=== PATIENT | female | born 1960 | race Caucasian/White ===

== ENCOUNTER 2016-05-17 11:42 | Outpatient (CLI) ==
[2014-07-24 13:00] VITALS: BMI 23.8
[2016-05-17 12:57] LABS: BILIRUBIN,URINE Negative (NEGATIVE); KETONES,URINE Negative (NEGATIVE); LEUKOCYTE ESTERASE ,URINE 1+ (NEGATIVE); NITRITE,URINE Negative (NEGATIVE); PROTEIN,URINE Negative (NEGATIVE); URINE, BLOOD Negative (NEGATIVE)
[2016-05-17 13:14] LABS: ADD URINE MICROSCOPIC YES
[2016-05-17 13:16] LABS: BACTERIA,URINE 1+ (NOT PRESENT)
[2016-05-17 13:23] LABS: ALBUMIN 3.8 g/dL (3.4-5.0); ALBUMIN/GLOBULIN RATIO 1.06; ANION GAP 15.1; BILIRUBIN,TOTAL 0.36 mg/dL (0.00-1.20); CALCIUM 9.7 mg/dL (8.2-10.2); CREATININE 0.99 mg/dL (0.60-1.30); POTASSIUM 5.1 mmol/L (3.5-5.10); TOTAL PROTEIN 7.4 g/dL (6.4-8.2)
[2016-05-17 13:24] LABS: BUN/CREATININE RATIO 27.27
== END 2016-05-17 11:43 | disposition home or self-care (01) ==
LOC: LAB 11:42
PROVIDERS: ATTEND Nurse Practitioner Family
DX: I10 Essential (primary) hypertension (principal); E11.9 Type 2 diabetes mellitus without complications; R30.9 Painful micturition, unspecified
CPT/HCPCS: 36415; 80053; 80061; 81001; 83036; 84443; 87086; 87186

== ENCOUNTER 2016-08-12 10:27 | Outpatient (CLI) ==
[2014-07-24 13:00] VITALS: BMI 23.8
[2016-08-12 13:57] LABS: BASOPHILS % (AUTO) 0.5 % (0.0-3.0); EOSINOPHILS # (AUTO) 0.1 K/ul (0.0-0.7); HEMATOCRIT 38.6 % (37.0-47.0); HEMOGLOBIN 12.7 g/dl (12.0-16.0); IMMATURE GRANULOCYTE % (AUTO) 0.4 % (0.0-5.0); LYMPHOCYTES # (AUTO) 1.9 K/uL (0.60-3.4); LYMPHOCYTES % (AUTO) 24.6 (10.0-50.0); MEAN CORPUSCULAR HEMOGLOBIN 31.2 pg (27.0-31.0); MEAN CORPUSCULAR HGB CONC 32.9 (31.8-35.4); MEAN CORPUSCULAR VOLUME 94.8 fl (81.0-99.0); MONOCYTES # (AUTO) 0.4 K/uL (0.4-2.0); MONOCYTES % (AUTO) 5.5 (0-10); NEUTROPHILS # (AUTO) 5.2 K/ul (2.0-6.9); PLATELET COUNT 218 10^3/uL (140-440); RED BLOOD COUNT 4.07 10^6/ul (4.20-5.40); WHITE BLOOD COUNT 7.68 K/ul (4.6-10.2)
[2016-08-12 15:14] LABS: CHOL/HDL RATIO 4.4 (4.5-5.5)
== END 2016-08-12 10:28 | disposition home or self-care (01) ==
LOC: LAB 10:27
PROVIDERS: ATTEND Nurse Practitioner Family
DX: E11.9 Type 2 diabetes mellitus without complications (principal); I10 Essential (primary) hypertension; E78.5 Hyperlipidemia, unspecified
CPT/HCPCS: 36415; 80061; 83036; 85025

== ENCOUNTER 2016-08-17 17:19 | Outpatient (CLI) ==
[2014-07-24 13:00] VITALS: BMI 23.8
[2016-08-17 18:44] LABS: BILIRUBIN,URINE Negative (NEGATIVE); KETONES,URINE Negative (NEGATIVE); LEUKOCYTE ESTERASE ,URINE 1+ (NEGATIVE); NITRITE,URINE Positive (NEGATIVE); PH,URINE 5.5 (5-9); PROTEIN,URINE Negative (NEGATIVE); URINE, BLOOD Negative (NEGATIVE)
[2016-08-17 18:51] LABS: ADD URINE MICROSCOPIC YES
[2016-08-17 18:52] LABS: BACTERIA,URINE 4+ (NOT PRESENT)
== END 2016-08-17 17:20 | disposition home or self-care (01) ==
LOC: LAB 17:19
PROVIDERS: ATTEND Nurse Practitioner Family
DX: E78.5 Hyperlipidemia, unspecified (principal); E11.9 Type 2 diabetes mellitus without complications; I10 Essential (primary) hypertension; N39.0 Urinary tract infection, site not specified
CPT/HCPCS: 81001; 87086; 87186

== ENCOUNTER 2016-11-18 11:39 | Outpatient (CLI) ==
[2014-07-24 13:00] VITALS: BMI 23.8
[2016-11-18 12:48] LABS: BILIRUBIN,URINE Negative (NEGATIVE); KETONES,URINE Negative (NEGATIVE); LEUKOCYTE ESTERASE ,URINE 2+ (NEGATIVE); NITRITE,URINE Negative (NEGATIVE); PH,URINE 5.5 (5-9); PROTEIN,URINE Negative (NEGATIVE); URINE, BLOOD 2+ (NEGATIVE)
[2016-11-18 12:57] LABS: ADD URINE MICROSCOPIC YES
[2016-11-18 12:58] LABS: BACTERIA,URINE 3+ (NOT PRESENT)
== END 2016-11-18 11:40 | disposition home or self-care (01) ==
LOC: LAB 11:39
PROVIDERS: ATTEND Nurse Practitioner Family
DX: R30.9 Painful micturition, unspecified (principal)
CPT/HCPCS: 81001; 87086

== ENCOUNTER 2016-11-22 13:05 | Outpatient (CLI) ==
[2014-07-24 13:00] VITALS: BMI 23.8
[2016-11-22 13:49] LABS: HEMOGLOBIN 13.2 g/dl (12.0-16.0); MEAN CORPUSCULAR HEMOGLOBIN 30.5 pg (27.0-31.0); MEAN CORPUSCULAR HGB CONC 33.8 (31.8-35.4); MEAN CORPUSCULAR VOLUME 90.1 fl (81.0-99.0); PLATELET COUNT 221 10^3/uL (140-440); RED BLOOD COUNT 4.33 10^6/ul (4.20-5.40); WHITE BLOOD COUNT 7.41 K/ul (4.6-10.2)
[2016-11-22 14:59] LABS: ALBUMIN 3.8 g/dL (3.4-5.0); ALBUMIN/GLOBULIN RATIO 1.12; ANION GAP 16.1; BILIRUBIN,TOTAL 0.45 mg/dL (0.00-1.20); BUN/CREATININE RATIO 24.07; CHOL/HDL RATIO 4.3 (4.5-5.5); CREATININE 1.08 mg/dL (0.60-1.30); POTASSIUM 4.1 mmol/L (3.5-5.10); TOTAL PROTEIN 7.2 g/dL (6.4-8.2)
== END 2016-11-22 13:06 | disposition home or self-care (01) ==
LOC: LAB 13:05
PROVIDERS: ATTEND Nurse Practitioner Family
DX: E11.9 Type 2 diabetes mellitus without complications (principal); I10 Essential (primary) hypertension
CPT/HCPCS: 36415; 80053; 80061; 83036; 85025

== ENCOUNTER 2017-02-01 16:34 | Outpatient (CLI) ==
[2014-07-24 13:00] VITALS: BMI 23.8
[2017-02-01 16:42] LABS: BILIRUBIN,URINE Negative (NEGATIVE); KETONES,URINE Negative (NEGATIVE); LEUKOCYTE ESTERASE ,URINE Trace (NEGATIVE); NITRITE,URINE Positive (NEGATIVE); PH,URINE 5.5 (5-9); PROTEIN,URINE Negative (NEGATIVE); URINE, BLOOD Trace-intact (NEGATIVE)
[2017-02-01 16:53] LABS: ADD URINE MICROSCOPIC YES
[2017-02-01 16:55] LABS: BACTERIA,URINE 4+ (NOT PRESENT)
== END 2017-02-01 16:35 | disposition home or self-care (01) ==
LOC: LAB 16:34
PROVIDERS: ATTEND Nurse Practitioner Family
DX: R81 Glycosuria (principal); R35.0 Frequency of micturition
CPT/HCPCS: 81001

== ENCOUNTER 2017-05-25 15:27 | Outpatient (CLI) ==
[2014-07-24 13:00] VITALS: BMI 23.8
== END 2017-05-25 15:28 | disposition home or self-care (01) ==
LOC: LAB 15:27
PROVIDERS: ATTEND Nurse Practitioner Family
DX: N39.0 Urinary tract infection, site not specified (principal); R31.9 Hematuria, unspecified
CPT/HCPCS: 81001; 87086

== ENCOUNTER 2017-05-26 14:53 | Outpatient (CLI) ==
[2014-07-24 13:00] VITALS: BMI 23.8
== END 2017-05-26 14:54 ==
LOC: LAB 14:53
PROVIDERS: ATTEND Nurse Practitioner Family
DX: E11.9 Type 2 diabetes mellitus without complications (principal); I10 Essential (primary) hypertension; E78.5 Hyperlipidemia, unspecified
CPT/HCPCS: 36415; 80053; 80061; 83036; 84443; 85025

== ENCOUNTER 2017-06-09 15:41 | Outpatient (CLI) ==
[2014-07-24 13:00] VITALS: BMI 23.8
--- NOTE | 2017-06-09 16:39 | DI ---
EXAM: KUB. History: Abdominal pain. Comparison: CT abdomen pelvis 07/24/2014 Findings: Postsurgical changes of the lumbosacral spine. Cholecystectomy clips. Nonspecific but no nobstructive bowel gas pattern. Moderate to large amount colonic stool. No free intraperitoneal air . No calcifications are seen projecting over the renal shadows. Multiple small pelvic calcification s are nonspecific but most likely represent phleboliths. Impression: 1. Nonspecific but nonobstructive bowel gas pattern. 2. Kvawqvji-hl-obvbb amount colonic stool.
== END 2017-06-09 15:42 | disposition home or self-care (01) ==
LOC: RAD 15:41
PROVIDERS: ATTEND Nurse Practitioner Family
DX: R10.9 Unspecified abdominal pain (principal)

== ENCOUNTER 2017-08-30 15:41 | Outpatient (CLI) | payer OTHER, BC ==
[2014-07-24 13:00] VITALS: BMI 23.8
== END 2017-08-30 15:42 | disposition home or self-care (01) ==
LOC: RHC-LAB 15:41
PROVIDERS: ATTEND Nurse Practitioner Family
DX: R30.9 Painful micturition, unspecified (principal)
CPT/HCPCS: 36415; 80053; 80061; 81001; 82306; 82607; 83036; 85025; 87086

== ENCOUNTER 2017-09-01 14:17 | Outpatient (CLI) ==
[2014-07-24 13:00] VITALS: BMI 23.8
== END 2017-09-01 14:18 | disposition home or self-care (01) ==
LOC: LAB 14:17
PROVIDERS: ATTEND Nurse Practitioner Family
DX: I10 Essential (primary) hypertension (principal); R53.83 Other fatigue; E11.9 Type 2 diabetes mellitus without complications; E78.5 Hyperlipidemia, unspecified
CPT/HCPCS: 36415; 80053; 83036

== ENCOUNTER 2017-11-09 16:00 | Outpatient (CLI) ==
[2014-07-24 13:00] VITALS: BMI 23.8
== END 2017-11-09 16:01 | disposition home or self-care (01) ==
LOC: RHC-LAB 16:00
PROVIDERS: ATTEND Nurse Practitioner Family
DX: R30.0 Dysuria (principal)
CPT/HCPCS: 81001; 87086

== ENCOUNTER 2017-12-19 10:14 | Outpatient (CLI) ==
[2014-07-24 13:00] VITALS: BMI 23.8
== END 2017-12-19 10:15 | disposition home or self-care (01) ==
LOC: LAB 10:14
PROVIDERS: ATTEND Nurse Practitioner Family
DX: E11.9 Type 2 diabetes mellitus without complications (principal)
CPT/HCPCS: 36415; 80053; 83036

== ENCOUNTER 2017-12-19 13:46 | Observation (INO) ==
[2017-12-19] MEDS ORDERED: NORCO 5-325 PO PRN (13:51)
[2017-12-19] MEDS ORDERED: NON-FORMULARY MEDICATION (Glipizide [Glipizide] 10 MG) PO SCH (14:00)
[2017-12-19] MEDS ORDERED: AUGMENTIN 875-125 MG TAB PO SCH (14:00)
[2017-12-19] MEDS ORDERED: PHENAZOPYRIDINE HCL 200 MG PO SCH (14:00)
[2017-12-19] MEDS ORDERED: NITROFURANTOIN MACROCRYSTAL 100 MG PO SCH (14:00)
[2017-12-19 14:19] VITALS: BMI 31.8
[2017-12-19] MEDS: ALBUTEROL 0.083% NEB NEB SCH ×2 (14:32→21:20)
[2017-12-19] MEDS: SODIUM CHLORIDE 1,000 ML IV SCH (14:39)
[2017-12-19] MEDS: NEURONTIN PO SCH ×2 (14:39→21:10)
[2017-12-19] MEDS: ANTIVERT PO SCH (14:40)
[2017-12-19] MEDS ORDERED: KAYEXALATE SUSP PO STA (14:42)
--- NOTE | 2017-12-19 16:01 | DI ---
Exam: Two-view chest x-ray. Date: 12/19/2017. Comparison: 07/25/2014. HISTORY: Cough. FINDINGS: Degenerative changes are seen in the thoracic spine. The lungs are hyperinflated. There is no focal consolidation in granulomatous calcifications present. Cardiac silhouette and pulmonary vasculature are normal. Impression: No acute intrathoracic findings. Emphysematous changes with old granulomatous disease.
[2017-12-19] MEDS ORDERED: NON-FORMULARY MEDICATION (Lisinopril [Lisinopril] 20 MG) PO SCH (21:00)
[2017-12-19] MEDS ORDERED: NON-FORMULARY MEDICATION (Metformin Hcl [Metformin Hcl] 1,000 MG) PO SCH (21:00)
[2017-12-19] MEDS ORDERED: ZESTRIL ONE (21:00)
[2017-12-19] MEDS ORDERED: GLUCOPHAGE ONE (21:01)
[2017-12-19] MEDS: LOPRESSOR PO SCH (21:10)
[2017-12-19] MEDS: CATAPRES PO SCH (21:10)
[2017-12-19] MEDS ORDERED: TYLENOL PO STA (22:07)
[2017-12-20] MEDS: SODIUM CHLORIDE 1,000 ML IV SCH ×2 (02:25→16:33)
[2017-12-20] MEDS: ALBUTEROL 0.083% NEB NEB SCH ×3 (05:05→22:58)
[2017-12-20] MEDS: DUONEB NEB ONE ×2 (05:16→05:18)
[2017-12-20] MEDS: NEURONTIN PO SCH ×3 (08:28→21:04)
[2017-12-20] MEDS: MACROBID PO SCH ×2 (08:29→21:04)
[2017-12-20] MEDS: ZESTRIL PO SCH ×2 (08:29→21:03)
[2017-12-20] MEDS: EFFEXOR XR PO SCH (08:29)
[2017-12-20] MEDS: GLUCOPHAGE PO SCH ×2 (08:29→16:34)
[2017-12-20] MEDS: CATAPRES PO SCH ×2 (08:30→21:03)
[2017-12-20] MEDS: FLONASE NAS SCH (08:30)
[2017-12-20] MEDS: LIPITOR PO SCH (08:30)
[2017-12-20] MEDS: LOPRESSOR PO SCH ×2 (08:30→21:03)
[2017-12-20] MEDS: PYRIDIUM PO SCH ×3 (08:31→18:32)
[2017-12-20] MEDS: LOVENOX SUBCUT SCH (08:31)
[2017-12-20] MEDS ORDERED: NON-FORMULARY MEDICATION (Fluticasone Propionate [Flonase Allergy Relief] 2 SPRAY) NS SCH (09:00)
[2017-12-20] MEDS ORDERED: NON-FORMULARY MEDICATION (Glipizide [Glipizide] 10 MG) PO SCH (09:00)
[2017-12-20] MEDS: GLUCOTROL PO SCH (09:10)
[2017-12-20] MEDS: ANTIVERT PO SCH (13:15)
--- NOTE | 2017-12-20 14:29 | HP ---
DATE OF SERVICE: 12/19/17 CHIEF COMPLAINT: Elevated Potassium 6.6 HISTORY OF PRESENT ILLNESS: This is a 57 year old female with a history of diabetes and hypertension. She came to get the outpatient blood work, potassium was 6.6 so the patient in review of potassium being 6.6 being lethal the patient was admitted to the hospital for treatment for the acute hyperkalemia. The patient being having urinary tract infections on and off for which the patient was started on the Macrodantin by the Judi Sprague. The patient did say that she was not able to take the medication and says that she still has some burning and frequency of urination and some back pain. No fever or chills. REVIEW OF SYSTEMS: CONSTITUTIONAL: No fever, no chills. HEENT: Normal. ENDOCRINE: No weight gain; no weight loss. CVS: No chest pain. No PND, no orthopnea. No shortness of breath. No PND, no orthopnea. RESPIRATORY: Cough, Congestion. No hemoptysis. GI: No nausea, no vomiting. No abdominal pain. No melena. : No hematuria. No polyuria. MUSCULOSKELETAL: No joint swelling. PSYCHIATRIC: Not anxious. No depression. No suicidal thoughts. No homicidal thoughts. SKIN: Intact, no open lesions. PAST MEDICAL HISTORY: GERD Hysterectomy Diabetes Anxiety PAST SURGICAL HISTORY: Hysterectomy Right eye removed Rehabilitated right ear drum PERSONAL HISTORY: The patient does not smoke, no alcohol and no drugs. FAMILY HISTORY: Cancer MEDICATIONS: Nitrofurantoin Flonase Glipizide Lisinopril Metformin Pyridium [place] Neurontin Effexor Antivert Lopressor Clonidine Lipitor ALLERGIES: Morphine PHYSICAL EXAMINATION: V/S: Blood pressure 103/70, respiratory rate 16, heart rate 80, temperature 97.9 , saturation is 93 on the room air. HEENT: Atraumatic, normocephalic. No scleral icterus. Pallor positive. Mucosa dry. NECK: Supple. No JVD, no bruit. No lymphadenopathy. No thyromegaly. HEART: S1, S2 normal. No murmur. No cyanosis or clubbing. No ascites. LUNGS: Decreased and clear to auscultation. No rales or rhonchi. ABDOMEN: Soft, nontender. Suprapubic tenderness present. Bowel sounds are active. No CVA tenderness. No rigidity or guarding. EXTREMITIES: No pedal edema. No cyanosis or clubbing MUSCULOSKELETAL: Normal joints, no swelling. NEUROLOGIC: The patient is awake and alert. SKIN: Intact; no open lesions. LYMPHATIC: No lymph nodes palpable. LABS: Sodium 137, potassium 6.6, chloride 109, bicarb 24, BUN 30, creatinine 0.93 and glucose 168, A1c 8.2. ASSESSMENT: 1. Acute hyperkalemia 2. Urinary tract infection 3. History of renal failure 4. Diabetes 5. Hypertension 6. Urinary tract infection 7. Diabetes with A1c 8.1 PLAN: 1. Admit patient to the regular floor 2. Kayexalate 3. Albuterol breathing treatment 4. Continue Nitrofurantoin 5. IV fluids 6. Recheck the Potassium by evening 7. Accu-checks with coverage TIME SPENT: MORE THAN 65 minutes MTDD
--- NOTE | 2017-12-20 14:53 | CT ---
EXAM: CT of the chest without contrast History: Hypoxia. Comparison: Chest radiograph 12/19/2017, chest CT 07/25/2014 Technique: Multiplanar CT images through the thorax were obtained without the administration of IV co ntrast Findings: Heart size is within normal limits. No pericardial effusion. No thoracic aortic aneurysm . No pathologically enlarged thoracic lymph nodes. Calcified granulomas again seen within the thora x. Coronary artery calcifications. Emphysema. No focal consolidation. No appreciable pleural flui d and no pneumothorax. No suspicious lung masses or lung nodules. Within the visualized upper abdomen, no acute findings. Stomach is moderately distended with fluid a nd debris. No acute osseous abnormalities. Impression: 1. No acute intrathoracic process. 2. Emphysema. 3. Coronary artery disease.
[2017-12-20] MEDS ORDERED: PROTONIX PO STA (19:50)
[2017-12-21] MEDS: ALBUTEROL 0.083% NEB NEB SCH ×2 (04:43→14:11)
[2017-12-21] MEDS: SODIUM CHLORIDE 1,000 ML IV SCH (05:52)
[2017-12-21] MEDS: PYRIDIUM PO SCH ×3 (08:03→17:29)
[2017-12-21] MEDS: GLUCOPHAGE PO SCH ×2 (08:03→17:29)
[2017-12-21] MEDS: ZESTRIL PO SCH (08:03)
[2017-12-21] MEDS: MACROBID PO SCH (08:04)
[2017-12-21] MEDS: EFFEXOR XR PO SCH (08:04)
[2017-12-21] MEDS: LOPRESSOR PO SCH (08:04)
[2017-12-21] MEDS: NEURONTIN PO SCH ×2 (08:04→15:02)
[2017-12-21] MEDS: CATAPRES PO SCH (08:04)
[2017-12-21] MEDS: LIPITOR PO SCH (08:04)
[2017-12-21] MEDS: GLUCOTROL PO SCH (08:04)
[2017-12-21] MEDS: FLONASE NAS SCH (08:05)
[2017-12-21] MEDS: LOVENOX SUBCUT SCH (08:10)
--- NOTE | 2017-12-21 08:31 | PN ---
DATE OF SERVICE: 12/20/17 SUBJECTIVE: The patient was admitted with the hyperkalemia. The patient is been hypoxic, ABG showed pH 7.317, pCO2 37.9, pO2 62 on room air. Potassium is normal today 4.6. Urine negative. REVIEW OF SYSTEMS: CONSTITUTIONAL: No fever, no chills. HEENT: Normal. ENDOCRINE: No weight gain, no weight loss. CVS: No angina symptoms. No CHF symptoms. No palpitations. No atypical chest pain for CAD. No shortness of breath. No PND, no orthopnea. RESPIRATORY: No cough, no hemoptysis. GI: No nausea, no vomiting. No abdominal pain. : No hematuria. No polyuria. MUSCULOSKELETAL: No joint swelling. PSYCHIATRIC: Not anxious. No depression. No suicidal thoughts. No homicidal thoughts. SKIN: Intact. No rash. PHYSICAL EXAMINATION: V/S: Blood pressure 141/87, respiratory rate 18, heart rate 83, temperature 98.4 with saturation 95 on 2 liters. HEENT: Normocephalic, atraumatic. Mucosa dry. Pallor positive. No icterus. NECK: Supple. No JVD, no carotid bruit. No lymphadenopathy. LUNGS:Decreased and basilar crackles. Clear to auscultation. No rales or rhonchi. HEART: S1, S2 normal. No S3. No murmur, gallop or regurgitation. ABDOMEN: Soft, nontender. Bowel sounds active. No rigidity. No rebound or guarding. No CVA tenderness. EXTREMITIES: No cyanosis, clubbing or pedal edema. MUSCULOSKELETAL: No joint swelling. NEUROLOGIC: Awake, alert. No focal deficit. LYMPHATIC: No lymph nodes palpable. SKIN: Intact. LABS: WBC 7.37, hgb 11.7, hct 35.6, plt count 128, sodium 140, potassium 4.6, chloride 110, bicarb 23, BUN 23, creatinine 0.80 and glucose 133. ASSESSMENT: 1. Status post hyperkalemia 6.6 2. Diabetes 3. Hypoxemia most likely COPD 4. Rule out pneumonia, will get CT chest today 5. Hypertension 6. Dyslipidemia 7. Anemia 8. Urinary tract infection PLAN: 1. Continue two liter nasal cannula. 2. CT of the chest 3. Lovenox for the DVT prophylaxis 4. Continue Nitrofurantoin TIME SPENT: More than 35 minutes MTDD
[2017-12-21] MEDS ORDERED: PROTONIX PO PRN (09:00)
--- NOTE | 2017-12-21 12:19 | US ---
EXAM: Left lower extremity venous doppler. HISTORY: Left leg pain and swelling. COMPARISON: None available. TECHNIQUE: A duplex Doppler study was performed consisting of integrated two dimensional (2D) real-t carrie imaging color flow Doppler and Doppler spectral analysis utilizing linear array probes. FINDINGS: There is normal flow, venous waveforms, compressibility and augmentation of flow within th e left common femoral, greater saphenous, profunda, femoral, popliteal, posterior tibial, anterior ti bial and peroneal veins. IMPRESSION: No evidence for left lower extremity deep vein thrombosis at the levels examined.
--- NOTE | 2017-12-21 13:20 | DI ---
EXAM: Four views of the left knee. History: Left knee pain. Findings: No acute fracture or dislocation. Superior patellar enthesiophyte. Benign anterior soft tissue calcifications. Moderate narrowing of the medial and patellofemoral compartments with osteoph ytes. Mild narrowing of the lateral compartment. Impression: 1. No acute osseous abnormality. 2. Tricompartmental osteoarthritis
[2017-12-21 13:52] VITALS: BP 162/83; TEMP 98.2
[2017-12-21] MEDS: ANTIVERT PO SCH (14:06)
--- NOTE | 2017-12-21 17:35 | PCM.HOSP ---
- Observation Care Discharge [id number] OBS Care Discharge (23806): 12/21 - Initial Observation Care [id number] High Complexity 70 Minutes (79330): 12/19 - Subsequent Observation Care [id number] 35 Minutes per Day (81785): 12/20
--- NOTE | 2017-12-22 09:13 | DS ---
DATE OF SERVICE: 12/21/17 FINAL DIAGNOSIS: 1. Hyperkalemia 2. Hypoxemia 3. Diabetes mellitus 4. Peripheral neuropathy 5. Uncontrolled diabetes 6. GERD 7. Anxiety disorder DISCHARGE INSTRUCTIONS: Discharge the patient home. Followup in the [facility] within 5-7 days. Keep monitoring the blood sugars. MEDICATIONS AT DISCHARGE: Meclizine Lisinopril Metformin Metoprolol Atorvastatin Effexor Clonidine Neurontin Cyclobenzaprine NEW PRESCRIPTIONS: Macrobid 500mg twice a day for 5 more days. Glipizide daily. DIET INSTRUCTIONS: Cardiac and healthy diet ACTIVITY: As much as tolerated DISEASE SPECIFIC EDUCATION: Hyperkalemia Risk of cardiovascular side effects been discussed and verbalized understanding. HOSPITAL COURSE: Citlalli Willis who is a 57 year old female did the blood work as an outpatient which showed elevated Potassium of 6.6. At that time the patient was called for the admission and admitted directly for 6.6 potassium and BUN 30. Given a dose of Kayexalate and Albuterol breathing treatment. Potassium came down to 4.6. Her recent A1c was 8.2. The patient has history of chronic kidney disease, her GFR is 62. The patient was hypoxic and ABG's done, CT chest done and did not show any acute findings. Left knee pain and left leg pain was complained. X-ray showed the moderate arthritis and Venous Doppler showed no clots. Meanwhile the patient is up and about walking and we did evaluate her for the home oxygen but she did not qualify. Up and about and did not have any problems. Saturation 93 on room air. As the patient been doing good and did not have any cough or congestion the patient being discharged home. TIME SPENT: MORE THAN 65 MINUTES [facility]
== END 2017-12-21 18:04 | disposition home or self-care (01) ==
LOC: MEDSURG B 13:46 → INTOOBSV 13:46
PROVIDERS: ADMIT Emergency Medicine; ATTEND Emergency Medicine
DX: E87.5 Hyperkalemia (principal); N39.0 Urinary tract infection, site not specified; E11.9 Type 2 diabetes mellitus without complications; I10 Essential (primary) hypertension; R09.02 Hypoxemia; G62.9 Polyneuropathy, unspecified; K21.9 Gastro-esophageal reflux disease without esophagitis; F41.9 Anxiety disorder, unspecified; E78.5 Hyperlipidemia, unspecified; D64.9 Anemia, unspecified
CPT/HCPCS: 36415; 80053; 81001; 82550; 82803; 82962; 83036; 84484; 85025; 93005; 93010; 94640; 94761

== ENCOUNTER 2018-04-21 14:30 | Outpatient (CLI) | END 2018-04-21 14:31 | disposition home or self-care (01) | LOC: LAB 14:30 → RHC-LAB 14:31 | PROVIDERS: ATTEND Nurse Practitioner Family | DX: N39.0 Urinary tract infection, site not specified (principal) | CPT/HCPCS: 81001; 87086; 87186 ==

== ENCOUNTER 2018-06-27 16:46 | Outpatient (CLI) | END 2018-06-27 16:47 | disposition home or self-care (01) | LOC: FCC-LAB 16:46 | PROVIDERS: ATTEND Nurse Practitioner Family | DX: R30.0 Dysuria (principal); Z86.19 Personal history of other infectious and parasitic diseases | CPT/HCPCS: 87086; 87186 ==

== ENCOUNTER 2018-07-17 16:15 | Outpatient (CLI) | END 2018-07-17 16:16 | disposition home or self-care (01) | LOC: RHC-LAB 16:15 → FCC-LAB 16:16 | PROVIDERS: ATTEND Nurse Practitioner Family | DX: R11.10 Vomiting, unspecified (principal) | CPT/HCPCS: 87502 ==

== ENCOUNTER 2018-07-28 10:39 | Outpatient (CLI) | END 2018-07-28 10:40 | disposition home or self-care (01) | LOC: RHC-LAB 10:39 | PROVIDERS: ATTEND Nurse Practitioner Family | DX: R53.83 Other fatigue (principal); E11.9 Type 2 diabetes mellitus without complications; I10 Essential (primary) hypertension; E78.5 Hyperlipidemia, unspecified; R19.7 Diarrhea, unspecified; N39.0 Urinary tract infection, site not specified | CPT/HCPCS: 36415; 80053; 80061; 82306; 82607; 83036; 84443; 87086 ==

== ENCOUNTER 2018-08-03 15:20 | Outpatient (CLI) | END 2018-08-03 15:21 | disposition home or self-care (01) | LOC: RHC-LAB 15:21 | PROVIDERS: ATTEND Nurse Practitioner Family | DX: E87.5 Hyperkalemia (principal); Z86.19 Personal history of other infectious and parasitic diseases | CPT/HCPCS: 36415; 81001; 84132 ==

== ENCOUNTER 2018-08-28 11:29 | Outpatient (CLI) | payer OTHER | END 2018-08-28 11:30 | disposition home or self-care (01) | LOC: RHC-LAB 11:29 | PROVIDERS: ATTEND Nurse Practitioner Family | DX: M62.441 Contracture of muscle, right hand (principal); R79.89 Other specified abnormal findings of blood chemistry; R81 Glycosuria | CPT/HCPCS: 36415; 80053; 81001; 84443; 87086; 87186 ==

== ENCOUNTER 2022-04-01 15:09 | Observation (INO) ==
[2022-04-01] MEDS ORDERED: TYLENOL PO ONE (15:27)
--- NOTE | 2022-04-01 15:32 | ED.PDOC ---
General ED Provider: Dr. JULISA CHAMPAGNE MD Chief Complaint: Chest Wall Injury/Pain Stated Complaint: mild positional and pleuritic right chest wall pain after trip and fall yesterday w/ syncope, no neck pain, no bleeding, on home oxygen, hs htn, copd, ckd, dm and pneumonia, pt requests a motrin, states she is not allergic to it Time Seen by Provider: 04/01/22 15:14 Mode of Arrival: Wheelchair Information Source: Patient Primary Care Provider: MICHAEL ORTEGA Nursing and Triage Documentation Reviewed and Agree: Yes Does patient meet sepsis criteria?: No System Inflammatory Response Syndrome: Not Applicable Sepsis Protocol: For patient's 13 years and over: Temp is 96.8 and below OR 101 and greater Pulse >90 BPM Resp >20/minute Acutely Altered Mental Status Are patient's symptoms suggestive of a new infection, such as: -Pneumonia -Skin, Soft Tissue -Endocarditis -UTI -Bone, Joint Infection -Implantable Device -Acute Abdominal Infection -Wound Infection -Meningitis -Blood Stream Catheter Infection -Unknown Review of Systems Review Of Systems Constitutional: Denies Fever Eyes: Denies Drainage Ears, Nose, Mouth, Throat: Denies Throat pain Respiratory: Denies Cough, Short of air or Wheezing Cardiac: Reports Chest pain GI: Denies Abdominal pain or Vomiting : Reports Flank pain Musculoskeletal: Denies Back pain Skin: Denies Bruising Neurological: Denies Cognitive dysfunction All Other Systems: Other [facility] Medical History (Updated 04/01/22 @ 18:41 by JULISA CHAMPAGNE MD) Abnormal TSH Abnormal TSH Abnormal TSH Acute sinusitis Bilateral leg cramps Bruise Burning with urination Chronic otitis media Chronic pain of lower extremity, bilateral COPD (chronic obstructive pulmonary disease) Cyst of hand Depression Diabetes Diabetes mellitus Dizziness Falls frequently Ganglion cyst of finger of right hand Glaucoma Hospital discharge follow-up Hyperkalemia Hyperkalemia Hypertension Left hip pain Need for pneumococcal vaccine Neuropathy involving both lower extremities Numbness and tingling of both lower extremities Obesity Osteoarthritis of hips, bilateral PAD (peripheral artery disease) Pain of left knee after injury Sensorineural hearing loss (SNHL) of both ears Tachycardia Tympanic membrane central perforation Upper respiratory infection with cough and congestion Urinary frequency Yeast infection Family History Grandfather/Grandmother Diabetes FATHER Cancer of brain Mother Diabetes Mother Cancer of pancreas PATERNAL GRANDMOTHER Cancer of pancreas SISTER Cancer of pancreas Social History Smoking and tobacco status: Former smoker Tobacco: How many years used: 30 Second hand smoke exposure: Yes Alcohol intake: never Substance use type: does not use Ynes/bahai: pentecbelena Special ynes needs: No Agree to transfusion: Yes Adopted: No Caregiver/support person: No Foster care: No Household members: spouse Housing: house Lives independently: Yes Daycare: no daycare Number of children: 3 Number of grandchildren: 8 Highest education level completed: 10th grade Financial difficulty paying for basics: not applicable service: No half-way: No Current occupational status: employed Current occupation: [employer] Current occupational exposures/hazards: No Pets and animals: Yes Leisure activites: reading and other History of recent travel: No Do you think of yourself as: straight/heterosexual Current gender identity: female Seatbelt use: always Helmet use: No Drives intoxicated or rides with intoxicated stage driver: No Water heater temperature set < 120 degrees: Yes Working smoke detector in home: Yes Fire extinguisher in home: No Carbon monoxide detector in home: No Firearms in home: No Surgical History History of neurologic surgery Status post cholecystectomy Status post hysterectomy Female Reproductive History Menstrual Hx Hysterectomy: Yes Hx Tubal Ligation: No Physical Exam Physical Exam Appearance: Reports Obese Ill-appearing: None Pain Distress: Mild Eyes: Reports Conjunctiva clear (right eye prosthesis) ENT: Reports Oropharynx normal Neck: Supple Respiratory: Reports Airway patent and Breath sounds clear Cardiovascular: Reports RRR and Other (tender right lateral chest wall) GI/: Reports Soft and Nontender Musculoskeletal: Reports ROM intact Skin: Reports Warm and Dry Neurological: Reports Alert and Oriented Psychiatric: Reports Affect appropriate Interpretation Radiology Interpretation Radiology Interpretation By: Radiologist Exam Interpreted: CT Scan Xray Comments: right 9th rib fx, no pneumothorax Radiology Interpretation By: Radiologist Radiology Results: No acute changes Exam Interpreted: CT Scan Xray Comments: no abdominal obstruction EKG Interpretation Time of EKG #1: 18:38 Rate: Normal Rhythm: Sinus Ectopy: PVCs Interpretation: no stemi Critical Care Note Critical Care Note Total Critical Care Time (mins): 0 Course Course Hematology/Chemistry: 04/01/22 15:37 04/01/22 15:37 Orders, Labs, Meds: Lab Review 04/01/22 04/01/22 04/01/22 15:37 15:37 15:37 WBC 8.58 RBC 4.56 Hgb 13.1 Hct 41.1 MCV 90.1 MCH 28.7 MCHC 31.9 RDW Coeff of Pradip 15.6 H Plt Count 247 Immature Gran % (Auto) 0.2 Neut % (Auto) 68.2 Lymph % (Auto) 23.4 [place] % (Auto) 6.8 Eos % (Auto) 0.9 Baso % (Auto) 0.5 Neut # (Auto) 5.9 Lymph # (Auto) 2.0 [place] # (Auto) 0.6 Eos # (Auto) 0.1 Baso # (Auto) 0.0 Immature Gran # (Auto) 0.0 Sodium 141.7 Potassium 3.50 Chloride 107.9 H Carbon Dioxide 28.4 Anion Gap 8.90 BUN 18.3 H Creatinine 0.94 Estimated GFR (MDRD) 60.00 BUN/Creatinine Ratio 19.46 Glucose 120.5 H Lactic Acid 1.80 Calcium 8.89 Total Bilirubin 0.61 AST 23.0 ALT 10.2 Alkaline Phosphatase 100.7 Total Creatine Kinase Troponin I 0.086 Total Protein 7.40 Albumin 3.80 Globulin 3.60 Albumin/Globulin Ratio 1.05 04/01/22 15:37 WBC RBC Hgb Hct MCV MCH MCHC RDW Coeff of Pradip Plt Count Immature Gran % (Auto) Neut % (Auto) Lymph % (Auto) [place] % (Auto) Eos % (Auto) Baso % (Auto) Neut # (Auto) Lymph # (Auto) [place] # (Auto) Eos # (Auto) Baso # (Auto) Immature Gran # (Auto) Sodium Potassium Chloride Carbon Dioxide Anion Gap BUN Creatinine Estimated GFR (MDRD) BUN/Creatinine Ratio Glucose Lactic Acid Calcium Total Bilirubin AST ALT Alkaline Phosphatase Total Creatine Kinase 30.9 Troponin I Total Protein Albumin Globulin Albumin/Globulin Ratio Orders Category Date Time Status EKG-(ED ONLY) Stat CARDIO 04/01/22 15:27 Completed Orthostatic Vital Signs [ED ORTHOSTATIC VITAL SIGNS] . EMERGENCY 04/01/22 16:58 Active ONCE CBC W/ AUTO DIFF Stat LAB 04/01/22 15:37 Completed CMP [COMPREHENSIVE METABOLIC PANEL] Stat LAB 04/01/22 15:37 Completed CPK [CREATINE KINASE] Stat LAB 04/01/22 15:37 Completed LACTIC ACID Stat LAB 04/01/22 15:37 Completed TROPONIN I Stat LAB 04/01/22 15:37 Completed Acetaminophen [Tylenol] MEDS 04/01/22 15:27 Discontinued 650 mg PO ONCE ONE Ibuprofen [Motrin] MEDS 04/01/22 15:38 Discontinued 400 mg PO ONCE ONE Sodium Chloride 0.9% [Sodium Chloride] 1,000 ml MEDS 04/01/22 17:[address] ABDOMEN/PELVIS WO CONTRAST Stat RADS 04/01/22 15:[address] CHEST W/O CONTRAST Stat RADS 04/01/22 15:27 Completed Medications Discontinued Medications Generic Name Dose Route Start Last Admin Trade Name Aubrey PRN Reason Stop Dose Admin Acetaminophen 650 mg 04/01/22 15:27 04/01/22 15:40 Acetaminophen 325 Mg Tablet PO 04/01/22 15:28 Not Given ONCE ONE Sodium Chloride 1,000 mls @ 1,000 mls/hr 04/01/22 17:06 04/01/22 17:13 Sodium Chloride IV 04/01/22 18:05 1,000 mls/hr BOLUS STA Administration Ibuprofen 400 mg 04/01/22 15:38 04/01/22 15:43 Ibuprofen 400 Mg Tablet PO 04/01/22 15:39 400 mg ONCE ONE Administration Vital Signs: Temp Pulse Resp BP Pulse Ox 04/01/22 17:10 94 109/78 04/01/22 17:05 92 102/77 04/01/22 17:00 82 123/79 04/01/22 15:10 97.8 F 88 20 123/85 96 Discharge Plan Discharge Patient Disposition: ADMITTED INPATIENT Discharge Problem: Fractured rib, Syncope, Orthostasis Prescriptions: No Action (DME) lancets [Lancets,Ultra Thin] 26 gauge misc See Rx Instructions .ROUTE .MEDSUPPLY Qty: 50 2RF Rx Instructions: As directed (DME) OneTouch Ultra Blue Test Strip Strip See Rx Instructions .ROUTE .MEDSUPPLY Qty: 50 3RF Rx Instructions: accucheck daily & as needed lovastatin 20 mg tablet See Rx Instructions .ROUTE .COMPLEX Qty: 90 0RF Dose Instruction: TAKE ONE TABLET AT BEDTIME GENERIC FOR MEVACOR Rx Instructions: TAKE ONE TABLET AT BEDTIME GENERIC FOR MEVACOR ferrous sulfate [FeroSul] 325 mg (65 mg iron) tablet See Rx Instructions .ROUTE .COMPLEX Qty: 30 3RF Dose Instruction: TAKE ONE TABLET EVERY OTHER DAY Rx Instructions: TAKE ONE TABLET EVERY OTHER DAY clopidogrel [Plavix] 75 mg tablet 75 mg PO QDAY Qty: 90 3RF metformin 1,000 mg tablet See Rx Instructions .ROUTE .COMPLEX Qty: 180 3RF Dose Instruction: TAKE ONE TABLET TWICE DAILY GENERIC FOR GLUCOPHAGE Rx Instructions: TAKE ONE TABLET TWICE DAILY GENERIC FOR GLUCOPHAGE venlafaxine [Effexor XR] 150 mg capsule,extended release 24hr 150 mg PO QDAY Qty: 30 6RF pantoprazole 40 mg tablet,delayed release (DR/EC) See Rx Instructions .ROUTE .COMPLEX Qty: 90 3RF Dose Instruction: TAKE ONE TABLET DAILY GENERIC FOR PROTONIX Rx Instructions: TAKE ONE TABLET DAILY GENERIC FOR PROTONIX gabapentin 300 mg capsule See Rx Instructions .ROUTE .COMPLEX Qty: 180 2RF Dose Instruction: TAKE 1 CAPSULE EVERY MORNING AND IN THE AFTERNOON AND TAKE FOUR CAPSULES AT BEDTIME Rx Instructions: TAKE 1 CAPSULE EVERY MORNING AND IN THE AFTERNOON AND TAKE FOUR CAPSULES AT BEDTIME cyclobenzaprine 10 mg tablet See Rx Instructions .ROUTE .COMPLEX Qty: 60 2RF Dose Instruction: TAKE ONE TABLET TWICE DAILY NEEDED GENERIC FOR FLEXERIL Rx Instructions: TAKE ONE TABLET TWICE DAILY NEEDED GENERIC FOR FLEXERIL levothyroxine [Synthroid] 75 mcg tablet 75 mcg PO QDAY Qty: 30 2RF ibuprofen 800 mg tablet 800 mg PO Q8H Qty: 20 0RF potassium chloride 10 mEq capsule, extended release 10 meq PO DAILY Qty: 14 0RF ondansetron 4 mg tablet,disintegrating 4 mg PO Q8H PRN (Reason: nausea and vomiting) Qty: 10 0RF albuterol sulfate 90 mcg/actuation HFA aerosol inhaler 2 puff inhalation 6XD PRN (Reason: shortness of breath or wheezing) Qty: 6.7 0RF (DME) compressor, for nebulizer Device See Rx Instructions .ROUTE .MEDSUPPLY Qty: 1 0RF Rx Instructions: As directed atorvastatin 10 mg tablet 10 mg PO QDAY furosemide 20 mg tablet 20 mg PO Q OTHER DAY guaifenesin 600 mg tablet extended release 12hr 600 mg PO Q12H Qty: 30 0RF fluticasone propion-salmeterol [Wixela Inhub] 250-50 mcg/dose blister with device 1 inh inhalation BID 30 Days Qty: 60 0RF Did you review [place] [employer] SUPERVISOR?: Not Applicable ED Provider: JULISA CHAMPAGNE Condition: Stable Physician Progress Note: []full admit to hospitalist for syncope, right 9th rib fx pain control and orthostasis
[2022-04-01] MEDS ORDERED: MOTRIN PO ONE (15:38)
[2022-04-01 15:43] LABS: BASOPHILS % (AUTO) 0.5 % (0.0-3.0); EOSINOPHILS # (AUTO) 0.1 K/ul (0.0-0.7); EOSINOPHILS % (AUTO) 0.9 % (0.0-7.0); HEMATOCRIT 41.1 % (37.0-47.0); HEMOGLOBIN 13.1 g/dl (12.0-16.0); IMMATURE GRANULOCYTE % (AUTO) 0.2 % (0.0-5.0); LYMPHOCYTES % (AUTO) 23.4 (10.0-50.0); MEAN CORPUSCULAR HEMOGLOBIN 28.7 pg (27.0-31.0); MEAN CORPUSCULAR HGB CONC 31.9 (31.8-35.4); MEAN CORPUSCULAR VOLUME 90.1 fl (81.0-99.0); MONOCYTES # (AUTO) 0.6 K/uL (0.4-2.0); MONOCYTES % (AUTO) 6.8 (0-10); NEUTROPHILS # (AUTO) 5.9 K/ul (2.0-6.9); NEUTROPHILS % (AUTO) 68.2 % (42.2-75.2); PLATELET COUNT 247 10^3/uL (140-440); RDW COEFFICIENT OF VARIATION 15.6 % (11.6-14.8); RED BLOOD COUNT 4.56 10^6/ul (4.20-5.40); WHITE BLOOD COUNT 8.58 K/ul (4.6-10.2)
[2022-04-01 15:55] LABS: ALANINE AMINOTRANSFERASE 10.2 U/L (0-35); ALBUMIN 3.8 g/dL (3.5-5.0); ALKALINE PHOSPHATASE 100.7 U/L (53-141); BILIRUBIN,TOTAL 0.61 mg/dL (0.2-1.3); BLOOD UREA NITROGEN 18.3 mg/dL (7-17); CALCIUM 8.89 mg/dL (8.4-10.2); CARBON DIOXIDE 28.4 mmol/L (22-30.0); CHLORIDE 107.9 mmol/L (98-107); CREATININE 0.94 mg/dL (0.60-1.30); GLUCOSE 120.5 mg/dL (74-106); POTASSIUM 3.5 mmol/L (3.5-5.1); SODIUM 141.7 mmol/L (134.5-145); TOTAL PROTEIN 7.4 g/dL (6.3-8.2)
[2022-04-01 16:08] LABS: TROPONIN I 0.086 ng/ml (0.0000-0.120)
--- NOTE | 2022-04-01 16:32 | CT ---
EXAM: CHEST CT WITHOUT CONTRAST HISTORY: Trauma. Fall, right lower rib pain. TECHNIQUE: CT acquisition of the chest from the thoracic inlet to the upper abdomen without IV contra st administration. CT Dose Reduction Techniques Performed: Yes. COMPARISON: Radiograph 03/15/2022. FINDINGS: Lines, Tubes, Devices: Cholecystectomy clips and lumbar fusion hardware noted on the pipe cleaning machine operator tomogram. Lung Parenchyma and Airways: Central airways are patent. No acute lung laceration or consolidation. Mild subpleural scarring with interstitial thickening and ground-glass. Moderate paraseptal emphysem a. Multiple scattered calcified granulomas in the lungs. Pleural Space: No pleural effusion. No pneumothorax. Thoracic Inlet, Mediastinum, and Meagan: Thyroid gland is normal. Multiple calcified granulomas and med iastinal hilar lymph nodes. No hematoma. Heart, Vessels, and Pericardium: Mild cardiomegaly. Multifocal atherosclerotic calcifications and cor onary calcifications. Dilated main pulmonary artery measuring 3.7 cm in diameter. No pericardial effu natividad. Bones and Soft Tissues: Unchanged chronic compression fracture of the T12 vertebral body with moderat e height loss. Acute right lateral ninth rib fracture. Multiple chronic bilateral rib fractures. No mass or lymphadenopathy. Upper Abdomen: Calcified granulomas in the spleen. Also see concurrent CT of the abdomen and pelvis. IMPRESSION: Acute right ninth rib fracture. No lung laceration or pneumothorax. Unchanged chronic and incidental findings as detailed above. All CT scans are performed using dose optimization techniques as appropriate to the performed exam an d include at least one of the following: Automated exposure control, adjustment of the mA and/or kV according t o size, and the use of iterative reconstruction technique.
--- NOTE | 2022-04-01 16:39 | CT ---
EXAM: CT of the abdomen and pelvis without contrast. TECHNIQUE: CT of the abdomen and pelvis was performed without the use of contrast. Multiplanar refo rmats were performed. HISTORY: Trauma COMPARISON: 03/16/2022 FINDINGS: Evaluation of solid organs and blood vessels is suboptimal without the benefit of contrast. Imaged lower thorax: Some basilar fibrotic changes are present with no infiltrate or effusion. Heart is enlarged. There is an acute appearing fracture of the 9th rib on the right. There are old fractu res of the 11th rib on the right which are healed radiographically Liver: Unremarkable. Gallbladder/Bile Ducts: No biliary dilation. The gallbladder is absent Spleen: Unremarkable. Pancreas: Unremarkable. Adrenals: Unremarkable. Kidneys/Ureters: Unremarkable. Bowel/mesentery/peritoneum: No bowel obstruction. The appendix is not visualized well. No free air or free fluid. Retroperitoneum/vessels: No aortic aneurysm. No adenopathy. Pelvis: Bladder wall contours normal. Bones/body wall: There is a compression fracture of T12 unchanged from prior. Degenerative changes of the lumbar spine, hips and pelvis. IMPRESSION: 1. Fracture of the 9th rib on the right which appears to be new compared to 03/16/2022. 2. Cardiomegaly. 3. Chronic appearing interstitial pulmonary findings. 4. Degenerative changes of the spine hips and pelvis 5. No change in older appearing T12 fracture All CT scans are performed using dose optimization techniques as appropriate to the performed exam an d includes at least one of the following: Automated exposure control, adjustment of the mA and/or kV according to size, and the use of iterative reconstruction technique. All CT scans are performed using dose optimization techniques as appropriate to the performed exam an d include at least one of the following: Automated exposure control, adjustment of the mA and/or kV according t o size, and the use of iterative reconstruction technique.
[2022-04-01] MEDS ORDERED: SODIUM CHLORIDE 1,000 ML IV STA (17:06)
[2022-04-01] MEDS ORDERED: TYLENOL PO PRN (18:41)
[2022-04-01] MEDS ORDERED: ZOFRAN ODT PO PRN (18:46)
[2022-04-01] MEDS ORDERED: VENTOLIN HFA (PER PUFF-WITH SPACER) IH PRN (18:46)
[2022-04-01] MEDS: SODIUM CHLORIDE 1,000 ML IV SCH (18:54)
[2022-04-01] MEDS ORDERED: FLEXERIL PO PRN (21:00)
[2022-04-01 22:29] VITALS: BMI 29.5
[2022-04-01] MEDS: ADVAIR 250-50 DISKUS IH SCH (22:44)
[2022-04-01] MEDS: NEURONTIN PO SCH (22:44)
[2022-04-01] MEDS: PROTONIX PO SCH (22:45)
[2022-04-01] MEDS: PLAVIX PO SCH (22:45)
[2022-04-01] MEDS: MOTRIN PO SCH (22:53)
[2022-04-02] MEDS: MOTRIN PO SCH ×3 (03:17→21:17)
[2022-04-02 05:37] LABS: BASOPHILS % (AUTO) 0.6 % (0.0-3.0); EOSINOPHILS # (AUTO) 0.1 K/ul (0.0-0.7); EOSINOPHILS % (AUTO) 1.8 % (0.0-7.0); HEMATOCRIT 36.4 % (37.0-47.0); HEMOGLOBIN 11.5 g/dl (12.0-16.0); IMMATURE GRANULOCYTE % (AUTO) 0.3 % (0.0-5.0); LYMPHOCYTES # (AUTO) 2.3 K/uL (0.60-3.4); LYMPHOCYTES % (AUTO) 37.3 (10.0-50.0); MEAN CORPUSCULAR HEMOGLOBIN 28.6 pg (27.0-31.0); MEAN CORPUSCULAR HGB CONC 31.6 (31.8-35.4); MEAN CORPUSCULAR VOLUME 90.5 fl (81.0-99.0); MONOCYTES # (AUTO) 0.4 K/uL (0.4-2.0); MONOCYTES % (AUTO) 6.8 (0-10); NEUTROPHILS # (AUTO) 3.3 K/ul (2.0-6.9); NEUTROPHILS % (AUTO) 53.2 % (42.2-75.2); PLATELET COUNT 206 10^3/uL (140-440); RDW COEFFICIENT OF VARIATION 15.5 % (11.6-14.8); RED BLOOD COUNT 4.02 10^6/ul (4.20-5.40); WHITE BLOOD COUNT 6.16 K/ul (4.6-10.2)
[2022-04-02 05:49] LABS: ALANINE AMINOTRANSFERASE 7.5 U/L (0-35); ALBUMIN 3.08 g/dL (3.5-5.0); ALKALINE PHOSPHATASE 86.7 U/L (53-141); ASPARTATE AMINO TRANSFERASE 12.4 U/L (14-36); BILIRUBIN,TOTAL 0.43 mg/dL (0.2-1.3); CALCIUM 8.45 mg/dL (8.4-10.2); CARBON DIOXIDE 27.3 mmol/L (22-30.0); CHLORIDE 111.9 mmol/L (98-107); CREATININE 0.94 mg/dL (0.60-1.30); GLUCOSE 119.7 mg/dL (74-106); POTASSIUM 3.67 mmol/L (3.5-5.1); SODIUM 141.5 mmol/L (134.5-145); TOTAL PROTEIN 6.09 g/dL (6.3-8.2)
[2022-04-02] MEDS: SODIUM CHLORIDE 1,000 ML IV SCH ×2 (08:18→21:21)
[2022-04-02] MEDS: LIPITOR PO SCH (09:30)
[2022-04-02] MEDS: NEURONTIN PO SCH ×3 (09:30→21:15)
[2022-04-02] MEDS: PLAVIX PO SCH (09:30)
[2022-04-02] MEDS: PROTONIX PO SCH (09:30)
[2022-04-02] MEDS: NORCO 5-325 PO PRN ×3 (09:31→21:16)
--- NOTE | 2022-04-02 09:31 | PCM.PROG ---
Date Seen by Provider: 04/02/22 Time Seen by Provider: 09:00 Subjective: Complains of right sided chest pain. Denies dyspnea. Objective: Vitals: T=97.4 F, P=78, R=20, XZ=741/78, SPO2=96 Patient is alert. She appears to be painful. No respiratory distress. HEENT: [] Neck: [] No JVD. Lungs: [] Bilateral expiratory wheezes. Right chest wall tender. No crepitance. CVS: [] RRR Abdomen: []Soft, nontender. Extremities: [] No evidence of deformity, swelling or tenderness. Neurological: [] Skin: [] Lab/Tests/Diagnostic Imaging: [] (1) Fractured rib: Status: Acute Code(s): S22.39XA - Fracture of one rib, unspecified side, initial encounter for closed fracture SNOMED Code(s): 25201502 (2) COPD (chronic obstructive pulmonary disease): Status: Acute Code(s): J44.9 - Chronic obstructive pulmonary disease, unspecified SNOMED Code(s): 16076892 (3) Recurrent falls while walking: Status: Acute Code(s): R29.6 - Repeated falls SNOMED Code(s): 287832199 Plan: Add norco for pain control. Add duonebs for COPD/wheezing. PT to see for strengthening and conditioning.
[2022-04-02] MEDS: ADVAIR 250-50 DISKUS IH SCH ×2 (09:35→22:01)
[2022-04-02] MEDS: DUONEB NEB SCH ×3 (09:44→19:48)
[2022-04-02] MEDS ORDERED: DUONEB NEB SCH (10:00)
--- NOTE | 2022-04-02 10:51 | DI ---
EXAM: PA and lateral views of the chest HISTORY: Severe rib pain COMPARISON: Chest x-ray 03/15/[address] chest 04/01/2022 FINDINGS: The cardiomediastinal silhouette is normal. Lungs are hyperinflated with interstitial opa cities most pronounced in the lung bases. There is no pneumothorax or pleural effusion. There is no consolidation, nodule or mass. The osseous structures demonstrate degenerative disease. There is n o displaced rib fracture on this limited evaluation. IMPRESSION: Hyperinflated lungs consistent with chronic obstructive pulmonary disease with interstit ial ground-glass most pronounced dependently. No acute displaced rib fracture. If further evaluation is indicated, dedicated rib x-rays may be per formed.
[2022-04-02 12:44] LABS: SARS COV-2 RNA RAPID NAAT NEGATIVE (NEGATIVE)
--- NOTE | 2022-04-02 14:56 | RS.PTINEVL ---
Subjective - Patient information Date of Evaluation: 04/02/22 Date of Arrival on Unit: 04/01/22 Admitted From:: Home Diagnosis: fall, 9th rib fx, impaired balance, gait difficulty Usual Living Arrangement: With Spouse Living Arrangement Comments: lives with Home Environment: House, Stairs (few), Rail Medical History: Hypertension, COPD, Diabetes, Arthritis Medical History Comments:: depression, glaucoma, neuropathy, PAD, Surgical History: Cholecystectomy, Hysterectomy Surgical History Comments:: R eye removed Medications: see chart Subjective Information/ Patient Comments:: pt states that she has pain in R ribs. - Level of function Prior to this admission, the patient could do the following:: Independent Selfcare, Independent ADL's, Independent Ambulation, Perform [employer]/Cooking Current Level of Function: Partially Dependent Current Equipment Used at Home: Rolling Walker, wheel chair, cane, and O2 Pain Assessement - Location R ribs Description: Sharp, Aching Intensity: 8 Pain Behavior: Rubbing Site, Facial Grimacing Pain Aggravating Factors: Changing Position, Exercise/Activity, Standing Pain Alleviating Factors: Medication Interventions - Objective Patient Orientation: Person, Place, Situation Current Interventions: IV's, Oxygen (3 liters), Telemetry Observation: pt with min edema BLE. Range of Motion - ROM Right Upper Extremity AROM: WFL's Left Upper Extremity AROM: WFL's Right Lower Extremity AROM: WFL's Left Lower Extremity AROM: WFL's Muscle Strength - Muscle Strength Right Upper Extremity Strength: Mild Weakness (4/5) Left Upper Extremity Strength: Mild Weakness (4/5) Right Lower Extremity Strength: Mild Weakness (hip flex 4-/5, knee flex/ext 4/5 , ankle DF/PF 4/5) Left Lower Extremity Strength: Mild Weakness (hip flex 4-/5, knee flex/ext 4/5 , ankle DF/PF 4/5) Sensation - Sensation Right Upper Extremity Sensation: Intact/Normal Left Upper Extremity Sensation: Intact/Normal Right Lower Extremity Sensation: Intact/Normal Left Lower Extremity Sensation: Intact/Normal Palpation Palpation Findings: Tenderness (R ribs) Balance - Sitting Balance and Reactions Static Sitting Balance: Good Dynamic Sitting Balance: Fair (fair+) - Standing Balance and Reactions Static Standing Balance: Fair (fair-) Dynamic Standing Balance: Poor Standing Equilibrium Reactions: Delayed Left, Delayed Right Standing Protective Reactions: Delayed Left, Delayed Right Functional Mobility - Bed Mobility Rolling R/L: Min Assist Supine to Sit: CGA Sit to Supine: CGA - Transfers Sit to Stand: CGA Stand to Sit: CGA - Safety Awareness Safety Awareness: Fair [place] INDEX SCORE: n/a Ambulation - Ambulation Assistive Device Used: Rolling Walker Orthotic/Prosthetic Device: No Distance: 120ft Assistance needed with Ambulation: CGA Gait Deviations: Shuffling gait, Forward posture, Short stride Ambulation Comments: pt requires verbal cues for posture and placement of rwx. Factors Affecting Ambulation: Decreased Balance, Pain, Weakness, Decreased Safety, Limited Endurance Treatment time - Time with patient Length of Evaluation: 21 Total treatment time: 29 Patient Education - Education Patient Education: Activity Modification, Education of Plan of Care Teaching Recipient: Patient Teaching Methods: Discussion, Demonstration (discussion regarding POC and dc planning. pt states she does not want to have home health at dc. ) Assessment - Assessment Problem List:: Decreased level of function, Requires training/education, Decreased safety/Risk of falls, Weakness, Pain limits previous level of function Rehab Potential: Good Further Therapy Indicated?: Yes Candidate for Swing Bed for Therapy Services?: Feel pt will not require swing bed due to pt ability. Evaluation Complexity: HISTORY: Medium, EXAM OF BODY SYSTEMS: Medium, CLINICAL PRESENTATION: Medium, CLINICAL DECISION MAKING: Medium Patient's Goal(s): Get stronger and go home Short Term Goals GOAL #1: pt independent with rolling and scooting in bed. Goal to be met by: 04/05/22 GOAL #2: Transfers sup to/from sit SBA Goal to be met by: 04/05/22 GOAL #3: Sit to/from stand SBA Goal to be met by: 04/05/22 GOAL #4: pt amb with rwx 140ft with CGA to SBA with no LOB. Goal to be met by: 04/05/22 GOAL #5: Improve BLE strength 4+/5 Goal to be met by: 04/05/22 Fdc Goals GOAL #1: pt transfer sup to/from sit to/from stand independently. Goal to be met by: 04/07/22 GOAL #2: pt amb with rwx functional household distances independently. Goal to be met by: 04/07/22 GOAL #3: Improve dyn stand balance fair- Goal to be met by: 04/07/22 Plan Plan of Care: Therapeutic EX, Therapeutic Activity Other:: gait training Frequency of Treatment: 1-2 X day, as tolerated Duration of Treatment: 5 days Anticipated Discharge Destination: Home Treatment Diagnosis (ICD 10 Codes): impaired balance R 26.81. gait difficulty R 26.2. repeated falls R 29.6. weakness M62.81 Has the Physician been added for Co-signature?: Yes
[2022-04-02] MEDS: HUMULIN R SUBCUT PRN (22:02)
[2022-04-03] MEDS: DUONEB NEB SCH ×4 (04:45→20:30)
[2022-04-03] MEDS: MOTRIN PO SCH (05:24)
[2022-04-03] MEDS: NORCO 5-325 PO PRN ×4 (05:25→18:45)
[2022-04-03 05:31] LABS: BASOPHILS % (AUTO) 0.5 % (0.0-3.0); EOSINOPHILS # (AUTO) 0.1 K/ul (0.0-0.7); EOSINOPHILS % (AUTO) 2.4 % (0.0-7.0); HEMATOCRIT 35.1 % (37.0-47.0); IMMATURE GRANULOCYTE % (AUTO) 0.2 % (0.0-5.0); LYMPHOCYTES % (AUTO) 36.8 (10.0-50.0); MEAN CORPUSCULAR HEMOGLOBIN 28.8 pg (27.0-31.0); MEAN CORPUSCULAR HGB CONC 31.3 (31.8-35.4); MEAN CORPUSCULAR VOLUME 91.9 fl (81.0-99.0); MONOCYTES # (AUTO) 0.4 K/uL (0.4-2.0); NEUTROPHILS # (AUTO) 2.9 K/ul (2.0-6.9); NEUTROPHILS % (AUTO) 52.1 % (42.2-75.2); PLATELET COUNT 172 10^3/uL (140-440); RDW COEFFICIENT OF VARIATION 15.7 % (11.6-14.8); RED BLOOD COUNT 3.82 10^6/ul (4.20-5.40); WHITE BLOOD COUNT 5.49 K/ul (4.6-10.2)
[2022-04-03 05:42] LABS: ALANINE AMINOTRANSFERASE 7.4 U/L (0-35); ALKALINE PHOSPHATASE 83.2 U/L (53-141); ASPARTATE AMINO TRANSFERASE 13.8 U/L (14-36); BILIRUBIN,TOTAL 0.37 mg/dL (0.2-1.3); BLOOD UREA NITROGEN 17.4 mg/dL (7-17); CALCIUM 8.21 mg/dL (8.4-10.2); CARBON DIOXIDE 26.3 mmol/L (22-30.0); CHLORIDE 112.6 mmol/L (98-107); CREATININE 0.93 mg/dL (0.60-1.30); GLUCOSE 101.5 mg/dL (74-106); POTASSIUM 4.02 mmol/L (3.5-5.1); SODIUM 142.1 mmol/L (134.5-145); TOTAL PROTEIN 6.03 g/dL (6.3-8.2)
[2022-04-03] MEDS: PROTONIX PO SCH (09:04)
[2022-04-03] MEDS: NEURONTIN PO SCH ×3 (09:04→21:10)
[2022-04-03] MEDS: PLAVIX PO SCH (09:04)
[2022-04-03] MEDS: LIPITOR PO SCH (09:04)
[2022-04-03] MEDS: ADVAIR 250-50 DISKUS IH SCH ×2 (09:05→21:10)
[2022-04-03] MEDS: SODIUM CHLORIDE 1,000 ML IV SCH ×2 (10:51→23:46)
[2022-04-03] MEDS ORDERED: MOTRIN PO PRN (12:21)
[2022-04-03] MEDS ORDERED: NON-FORMULARY MEDICATION (Dulaglutide [Trulicity] 1.5 mg/0.5 mL pen injector) SUBCUT SCH (17:00)
[2022-04-03] MEDS: HUMULIN R SUBCUT PRN (21:15)
[2022-04-04] MEDS: NORCO 5-325 PO PRN ×3 (03:49→20:44)
[2022-04-04] MEDS: DUONEB NEB SCH ×4 (04:45→19:35)
--- NOTE | 2022-04-04 05:06 | PCM.PROG ---
Date Seen by Provider: 04/03/22 Time Seen by Provider: 09:00 Subjective: CC- Right rib pain and cough. Objective: Vitals: T=97.9 F, P=94, R=18, LL=278/99, SPO2=92 HEENT: [wnl] Neck: [supple] Lungs: [rhonchi, right chest wall pain] CVS: [RRR] Abdomen: [soft] Extremities: [intact] Neurological: [intact] Skin: [wnl] Lab/Tests/Diagnostic Imaging: [see chart] (1) Fractured rib: Status: Acute Code(s): S22.39XA - Fracture of one rib, unspecified side, initial encounter for closed fracture SNOMED Code(s): 93090133 Assessment: Slow recovery, on pain med prn (2) COPD (chronic obstructive pulmonary disease): Status: Acute Code(s): J44.9 - Chronic obstructive pulmonary disease, unspecified SNOMED Code(s): 39967066 Assessment: Slow improvement, had med, neb (3) Recurrent falls while walking: Status: Acute Code(s): R29.6 - Repeated falls SNOMED Code(s): 108255312 Assessment: Stable Plan: Continue same orders.
[2022-04-04] MEDS: PROTONIX PO SCH (06:10)
[2022-04-04] MEDS: ADVAIR 250-50 DISKUS IH SCH ×2 (08:23→21:45)
[2022-04-04] MEDS: NEURONTIN PO SCH ×3 (08:24→20:43)
[2022-04-04] MEDS: PLAVIX PO SCH (08:24)
[2022-04-04] MEDS: LIPITOR PO SCH (08:24)
--- NOTE | 2022-04-04 09:02 | PCM.PROG ---
Date Seen by Provider: 04/04/22 Time Seen by Provider: 08:20 Subjective: Still requiring norco regularly for pain control. Gradually improving. Objective: Vitals: T=97 F, P=88, R=18, OF=326/88, SPO2=95 No respiratory distress. Appears to be weak. Alert. HEENT: [] Neck: [] Lungs: [] Some bilateral expiratory wheezes bilaterally. No crepitance. CVS: [] RRR. No edema. Abdomen: []Soft, nontender. Extremities: [] Neurological: [] Skin: [] Lab/Tests/Diagnostic Imaging: [] (1) Fractured rib: Status: Acute Code(s): S22.39XA - Fracture of one rib, unspecified side, initial encounter for closed fracture SNOMED Code(s): 13164242 (2) COPD (chronic obstructive pulmonary disease): Status: Acute Code(s): J44.9 - Chronic obstructive pulmonary disease, unspecified SNOMED Code(s): 09135558 (3) Recurrent falls while walking: Status: Acute Code(s): R29.6 - Repeated falls SNOMED Code(s): 435241563 Plan: Continue present management. Hopefully, home tomorrow.
[2022-04-04] MEDS: HUMULIN R SUBCUT PRN ×3 (11:26→20:45)
[2022-04-04] MEDS: SODIUM CHLORIDE 1,000 ML IV SCH (13:28)
[2022-04-04] MEDS: TOPROL XL PO SCH (22:36)
[2022-04-04] MEDS ORDERED: CATAPRES PO STA (23:44)
[2022-04-05] MEDS: SODIUM CHLORIDE 1,000 ML IV SCH (01:22)
[2022-04-05] MEDS: DUONEB NEB SCH ×2 (04:30→10:11)
[2022-04-05 05:30] VITALS: TEMP 97.6
[2022-04-05] MEDS: PROTONIX PO SCH (06:06)
[2022-04-05] MEDS: NEURONTIN PO SCH (08:53)
[2022-04-05] MEDS: LIPITOR PO SCH (08:53)
[2022-04-05] MEDS: PLAVIX PO SCH (08:54)
[2022-04-05] MEDS: TOPROL XL PO SCH (08:54)
[2022-04-05] MEDS: ADVAIR 250-50 DISKUS IH SCH (08:56)
[2022-04-05] MEDS: NORCO 5-325 PO PRN (10:14)
[2022-04-05] MEDS ORDERED: COZAAR PO SCH (10:30)
[2022-04-05] MEDS ORDERED: CEFTIN PO SCH ×2 (10:30→21:00)
--- NOTE | 2022-04-05 11:14 | PCM.DC ---
Final Diagnosis: Right rib fracture. COPD exacerbation Date of admit - 04/01/22 Date of discharge - 04/05/22 Physical Exam Appearance: Well-appearing Ill-appearing: None Pain Distress: None ENT: Oropharynx normal Neck: Supple Respiratory: Airway patent, Breath sounds clear, Breath sounds diminished and Other (TTP right chest wall) Cardiovascular: RRR and Pulses normal GI/: Soft and Nontender Musculoskeletal: Normal strength and ROM intact Skin: Warm and Dry Neurological: Sensation intact and Motor intact Psychiatric: Affect appropriate and Mood appropriate (1) Fractured rib: Status: Acute Code(s): S22.39XA - Fracture of one rib, unspecified side, initial encounter for closed fracture SNOMED Code(s): 92095650 (2) COPD (chronic obstructive pulmonary disease): Status: Acute Code(s): J44.9 - Chronic obstructive pulmonary disease, unspecified SNOMED Code(s): 43436371 (3) Recurrent falls while walking: Status: Acute Code(s): R29.6 - Repeated falls SNOMED Code(s): 194747745 Reason for Hospitalization: Minor fall at home resulted in right rib fx, caused a COPD exacerbation. Prognosis/Condition at Discharge: Good. Stable. Medications at Discharge: Medications at Discharge (Home Meds & RX) Medications at Discharge (Home Meds & RX) compressor, for nebulizer #1 ea 07/10/20 lancets 26 gauge (Lancets,Ultra Thin) #50 ea 09/01/20 blood sugar diagnostic #50 ea 01/12/21 ibuprofen 800 mg tablet 800 mg PO Q8H #20 tabs 08/01/21 lovastatin 20 mg tablet See Rx Instructions .Route .COMPLEX #90 tabs 09/24/21 ferrous sulfate 325 mg (65 mg iron) tablet (FeroSul) See Rx Instructions .Route .COMPLEX #30 tabs 10/27/21 clopidogrel 75 mg tablet (Plavix) 75 mg PO QDAY #90 tabs 11/26/21 metformin 1,000 mg tablet See Rx Instructions .Route .COMPLEX #180 tabs 11/26/21 pantoprazole 40 mg tablet,delayed release See Rx Instructions .Route .COMPLEX #90 tabs 12/23/21 venlafaxine 150 mg capsule,extended release 24 hr (Effexor XR) 150 mg PO QDAY #30 caps 12/23/21 potassium chloride 10 mEq capsule,extended release 10 meq PO DAILY #14 caps 01/26/22 cyclobenzaprine 10 mg tablet See Rx Instructions .Route .COMPLEX #60 tabs 02/24/22 gabapentin 300 mg capsule See Rx Instructions .Route .COMPLEX #180 caps 02/24/22 levothyroxine 75 mcg tablet (Synthroid) 75 mcg PO QDAY #30 tabs 02/24/22 albuterol sulfate 90 mcg/actuation aerosol inhaler 2 puff inhalation 6XD PRN shortness of breath or wheezing #6.7 grams 03/16/22 ondansetron 4 mg disintegrating tablet 4 mg PO Q8H PRN nausea and vomiting #10 tabs 03/16/22 atorvastatin 10 mg tablet 10 mg PO QDAY 03/26/22 fluticasone 250 mcg-salmeterol 50 mcg/dose blistr powdr for inhalation (Wixela Inhub) 1 inh inhalation BID 30 days #60 ea 03/26/22 furosemide 20 mg tablet 20 mg PO Q OTHER DAY 03/26/22 guaifenesin 600 mg tablet, extended release 12 hr 600 mg PO Q12H #30 tabs 03/26/22 dulaglutide 1.5 mg/0.5 mL subcutaneous pen injector (Trulicity) 1.5 mg subcut WEEKLY 04/03/22 cefuroxime axetil 500 mg tablet 500 mg PO BID Lung infection 7 days #14 tabs 04/05/22 hydrocodone 10 mg-acetaminophen 325 mg tablet 1 tab PO Q6H PRN pain #20 tabs 04/05/22 losartan 50 mg tablet (Cozaar) 50 mg PO DAILY High BP #30 tabs 04/05/22 methylprednisolone 4 mg tablets in a dose pack (Medrol (Jose)) See Rx Instructions PO .COMPLEX #21 ea 04/05/22 metoprolol succinate 50 mg tablet,extended release 24 hr (Toprol XL) 50 mg PO QHS High BP #30 tabs 04/05/22 Lab/Diagnostics: Laboratory Tests 04/01/22 04/01/22 04/01/22 15:37 15:37 15:37 WBC 8.58 RBC 4.56 Hgb 13.1 Hct 41.1 MCV 90.1 MCH 28.7 MCHC 31.9 RDW Coeff of Pradip 15.6 H Plt Count 247 Immature Gran % (Auto) 0.2 Neut % (Auto) 68.2 Lymph % (Auto) 23.4 Benton % (Auto) 6.8 Eos % (Auto) 0.9 Baso % (Auto) 0.5 Neut # (Auto) 5.9 Lymph # (Auto) 2.0 Benton # (Auto) 0.6 Eos # (Auto) 0.1 Baso # (Auto) 0.0 Immature Gran # (Auto) 0.0 Sodium 141.7 Potassium 3.50 Chloride 107.9 H Carbon Dioxide 28.4 Anion Gap 8.90 BUN 18.3 H Creatinine 0.94 Estimated GFR (MDRD) 60.00 BUN/Creatinine Ratio 19.46 Glucose 120.5 H Lactic Acid 1.80 Calcium 8.89 Total Bilirubin 0.61 AST 23.0 ALT 10.2 Alkaline Phosphatase 100.7 Total Creatine Kinase Troponin I 0.086 Total Protein 7.40 Albumin 3.80 Globulin 3.60 Albumin/Globulin Ratio 1.05 SARS CoV-2 RNA Rapid JOAQUIN 04/01/22 04/02/22 04/02/22 15:37 00:35 05:21 WBC 6.16 RBC 4.02 L Hgb 11.5 L Hct 36.4 L MCV 90.5 MCH 28.6 MCHC 31.6 L RDW Coeff of Pradip 15.5 H Plt Count 206 Immature Gran % (Auto) 0.3 Neut % (Auto) 53.2 Lymph % (Auto) 37.3 Benton % (Auto) 6.8 Eos % (Auto) 1.8 Baso % (Auto) 0.6 Neut # (Auto) 3.3 Lymph # (Auto) 2.3 Benton # (Auto) 0.4 Eos # (Auto) 0.1 Baso # (Auto) 0.0 Immature Gran # (Auto) 0.0 Sodium Potassium Chloride Carbon Dioxide Anion Gap BUN Creatinine Estimated GFR (MDRD) BUN/Creatinine Ratio Glucose Lactic Acid Calcium Total Bilirubin AST ALT Alkaline Phosphatase Total Creatine Kinase 30.9 Troponin I 0.058 Total Protein Albumin Globulin Albumin/Globulin Ratio SARS CoV-2 RNA Rapid JOAQUIN 04/02/22 04/02/22 04/02/22 05:21 08:30 12:05 WBC RBC Hgb Hct MCV MCH MCHC RDW Coeff of Pradip Plt Count Immature Gran % (Auto) Neut % (Auto) Lymph % (Auto) Benton % (Auto) Eos % (Auto) Baso % (Auto) Neut # (Auto) Lymph # (Auto) Benton # (Auto) Eos # (Auto) Baso # (Auto) Immature Gran # (Auto) Sodium 141.5 Potassium 3.67 Chloride 111.9 H Carbon Dioxide 27.3 Anion Gap 5.97 BUN 19.0 H Creatinine 0.94 Estimated GFR (MDRD) 60.00 BUN/Creatinine Ratio 20.21 Glucose 119.7 H Lactic Acid Calcium 8.45 Total Bilirubin 0.43 AST 12.4 L ALT 7.5 Alkaline Phosphatase 86.7 Total Creatine Kinase Troponin I 0.039 Total Protein 6.09 L Albumin 3.08 L Globulin 3.01 Albumin/Globulin Ratio 1.02 SARS CoV-2 RNA Rapid JOAQUIN Negative 04/03/22 04/03/22 05:20 05:20 WBC 5.49 RBC 3.82 L Hgb 11.0 L Hct 35.1 L MCV 91.9 MCH 28.8 MCHC 31.3 L RDW Coeff of Pradip 15.7 H Plt Count 172 Immature Gran % (Auto) 0.2 Neut % (Auto) 52.1 Lymph % (Auto) 36.8 Benton % (Auto) 8.0 Eos % (Auto) 2.4 Baso % (Auto) 0.5 Neut # (Auto) 2.9 Lymph # (Auto) 2.0 Benton # (Auto) 0.4 Eos # (Auto) 0.1 Baso # (Auto) 0.0 Immature Gran # (Auto) 0.0 Sodium 142.1 Potassium 4.02 Chloride 112.6 H Carbon Dioxide 26.3 Anion Gap 7.22 BUN 17.4 H Creatinine 0.93 Estimated GFR (MDRD) 61.00 BUN/Creatinine Ratio 18.70 Glucose 101.5 Lactic Acid Calcium 8.21 L Total Bilirubin 0.37 AST 13.8 L ALT 7.4 Alkaline Phosphatase 83.2 Total Creatine Kinase Troponin I Total Protein 6.03 L Albumin 3.00 L Globulin 3.03 Albumin/Globulin Ratio 0.99 SARS CoV-2 RNA Rapid JOAQUIN IMPRESSION: Acute right ninth rib fracture. No lung laceration or pneumothorax. Unchanged chronic and incidental findings as detailed above. Education Provided to Patient and Family: Per RN Follow-ups: PCP Discharge Disposition: Home Hospital Course: Admitted with right rib fx and COPD exac. Gradually better. BP elevated and required new med for that. She has home oxygen already at 3 L. Plan: Rx for home and F/U. This discharge prepared with [id number] exam and documentation entailed 45 minutes.
[2022-04-05 11:43] VITALS: BP 134/80
[2022-04-05] MEDS: HUMULIN R SUBCUT PRN (13:03)
[2022-04-05] MEDS ORDERED: TOPROL XL PO SCH (21:00)
== END 2022-04-05 13:18 | disposition home or self-care (01) ==
LOC: ED 15:09 → INTOOBSV 20:40 → MEDSURG A 20:40
PROVIDERS: ADMIT Internal Medicine Geriatric Medicine; ATTEND Emergency Medicine
DX: Z99.81 Dependence on supplemental oxygen; Z79.899 Other long term (current) drug therapy; Z20.822 Contact with and (suspected) exposure to COVID-19; S22.39XA Fracture of one rib, unspecified side, initial encounter for closed fracture; Z51.81 Encounter for therapeutic drug level monitoring; Z79.84 Long term (current) use of oral hypoglycemic drugs; J44.9 Chronic obstructive pulmonary disease, unspecified; R55 Syncope and collapse; R29.6 Repeated falls